=== PATIENT | male | born 1985 | race Two or more races ===

== ENCOUNTER 2019-12-17 17:55 | Emergency (ER) | payer BC, OTHER ==
[~2019-12-17] VITALS: Ht 175.3 cm; Wt 122.5 kg
[2019-12-17 18:52] LABS: Basophils # (auto) 0.1 10 ^3/uL (0-0.2); Basophils % (auto) 1.1 % (0.0-2.0); Eosinophils # (auto) 0.1 10 ^3/uL (0-0.8); Eosinophils % (auto) 1.6 % (0.0-7.0); Hematocrit 47.9 % (41.0-53.0); Hemoglobin 16.4 g/dL (13.5-17.5); Lymphocytes # (auto) 1.9 10 ^3/uL (0.4-5.4); Lymphocytes % (auto) 23.1 % (10.0-50.0); Mean Corpuscular Hemoglobin 29.1 pg (28.0-32.0); Mean Corpuscular Hgb Conc. 34.3 g/dL (32.0-36.0); Mean Corpuscular Volume 84.9 fL (80.0-100.0); Monocytes # (auto) 0.5 10 ^3/uL (0-1.3); Monocytes % (auto) 6.4 % (0.0-12.0); Neutrophils # (auto) 5.7 10 ^3/uL (1.6-8.6); Neutrophils % (auto) 67.8 % (37.0-80.0); Nucleated Red Blood Cells % 0.1 %; Platelet Count (auto) 236 10^3/uL (140-450); Red Blood Cells 5.64 10^6/uL (4.5-5.90); Red Cell Distribution Width 13.3 % (11.8-14.3); White Blood Cell 8.3 10^3/uL (4.4-10.8)
[2019-12-17 19:11] LABS: Alanine Aminotransferase 55 U/L (16-61); Albumin 4.1 g/dL (3.4-5.0); Anion Gap 5 (5-15); Aspartate Aminotransferase 21 U/L (15-37); BUN/Creatinine Ratio 13.5; Blood Urea Nitrogen 10 mg/dL (7-18); Carbon Dioxide 28 mmol/L (21-32); Chloride 104 mmol/L (98-107); GFR African American 158 mL/min; GFR Non-African American 130 mL/min; Glucose 104 mg/dL (74-106); Potassium 3.9 mmol/L (3.5-5.1); Sodium 137 mmol/L (136-145)
[2019-12-17 19:17] LABS: Alkaline Phosphatase 63 U/L (45-117); Bilirubin, Total 0.5 mg/dL (0.2-1.0); Total Protein 7.4 g/dL (6.4-8.2)
[2019-12-17] MEDS ORDERED: cloNIDine HCL 0.1 MG TAB PO ONE ×2 (20:00→23:45)
[2019-12-17 20:43] LABS: Urine Bacteria NONE SEEN /hpf (None Seen); Urine Blood Negative /uL (Negative); Urine Mucus FEW (None Seen); Urine Specific Gravity 1.023 (1.001-1.035); Urine WBC 7 /hpf (0 - 3)
[2019-12-17 20:55] LABS: Amphetamine Screen, Urine NEGATIVE (NEGATIVE); Barbiturate Scree,Urine NEGATIVE (NEGATIVE); Benzodiazephine Screen, Urine NEGATIVE (NEGATIVE); Cannabinoid Screen, Urine POSITIVE (NEGATIVE); Cocaine Screen, Urine NEGATIVE (NEGATIVE); Phencyclidine Screen, Urine NEGATIVE (NEGATIVE)
[2019-12-17 21:02] LABS: Opiate Scree,Urine NEGATIVE (NEGATIVE)
[2019-12-18 01:00] VITALS: BP 130/97
== END 2019-12-18 01:33 | disposition home or self-care (01) ==
LOC: ER 17:55
DX: I16.0 Hypertensive urgency (principal)
CPT/HCPCS: 36415; 70450; 80053; 80307; 81001; 84484; 85025